=== PATIENT | female | born 1980 ===

== ENCOUNTER 2016-09-10 12:07 | Emergency (ER) | payer BC ==
--- NOTE | 2016-09-21 17:59 | ER ---
ADMIT: 09/10/2016 RM/LOC: ER [facility] MR#: [id number] [address] [id number] [facility] [address] [place] [address] [address] [place] [address] Emergency Room Report SEX: F AGE: 36 : 1980 DATE: 09/10/2016 ADDENDUM: CHIEF COMPLAINT: Vaginal bleeding. HISTORY OF PRESENT ILLNESS: This is a 36-year-old female who just started spotting just today, had some abdominal cramping yesterday but it is all gone. COURSE IN THE EMERGENCY ROOM: I did order a CBC, beta HCG, and blood type. While the patient was here, she said she actually feels significantly better, does not feel like she is bleeding much, does not want to stay in the ER. She has an appointment with her primary care physician tomorrow. The labs at discharge; I did get her blood type which is B positive. I told her it is okay to go home. Follow up with Dr. Stokes tomorrow as scheduled. Reasons to return to the ER, if she is bleeding through two pads in 2 consecutive hours. CLINICAL IMPRESSION: Threatened miscarriage. [facility] / Jose Cuba MD / modl JOB #: [id number] CC: Jose Cuba MD, Attending Physician Rashaad Stokes MD, Family Physician
== END 2016-09-10 14:00 | disposition home or self-care (01) ==
LOC: ER 12:07
DX: O20.0 Threatened abortion (principal); Z3A.09 9 weeks gestation of pregnancy